=== PATIENT | male | born 1945 | race Hispanic/Latino ===

== ENCOUNTER 2019-03-16 06:30 | Emergency (ER) | payer MEDICARE ==
[2019-03-16 06:46] LABS: #Lymphocytes 0.6 thou/uL (1.20-3.40); #Monocytes 0.5 thou/uL (0.11-0.59); #Neutrophils 9.6 thou/uL (1.40-6.50); %Basophils 0.5 % (0.0-1.0); %Neutrophils 88.5 % (42.0-75.0); Mean Corpuscular HGB CONC 32.9 g/dL (32.0-36.0); Mean Corpuscular Hemoglobin 30.1 pg (27.0-31.0); Mean Corpuscular Volume 91.7 fL (78.0-98.0); Mean Platelet Volume 8.1 fL (7.4-10.4); Platelet Count 121 thou/uL (130-400); RBC Distribution Width 12.8 % (11.5-14.5); Red Blood Cell (RBC) Count 3.33 mill/uL (4.70-6.10); White Blood Cell (WBC) Count 10.8 thou/uL (4.8-10.8)
[2019-03-16 07:03] LABS: ALT (SGPT) 10 U/L (8-55); AST (SGOT) 15 U/L (5-34); Albumin 2.7 g/dL (3.4-4.8); Alkaline Phosphatase 65 U/L (40-110); Anion Gap 15 mmol/L (10-20); BUN (Urea Nitrogen) 73 mg/dL (8.4-25.7); Bilirubin, Total 0.5 mg/dL (0.2-1.2); Calc. Creatinine Clearance 0 mL/min (70-130); Calcium 7.6 mg/dL (7.8-10.44); Carbon Dioxide 23 mmol/L (23-31); Chloride 104 mmol/L (98-107); Estimated GFR-MDRD 26; Globulin 2.1 g/dL (2.4-3.5); Glucose 180 mg/dL (83-110); Potassium 4.5 mmol/L (3.5-5.1); Protein, Total 4.8 g/dL (5.8-8.1); Sodium 137 mmol/L (136-145)
[2019-03-16 07:16] LABS: INR-International Normal Ratio 1.3; PTT 34.8 SEC (22.9-36.1); Prothrombin Time 16.6 SEC (12.0-14.7)
[2019-03-16 07:21] LABS: CKMB 4.5 ng/mL (0-6.6)
--- NOTE | 2019-03-16 07:31 | CT ---
Exam: Head CT without contrast HISTORY: Altered mental status COMPARISON: none FINDINGS: Hemorrhage: No intraparenchymal hemorrhage or extra-axial hematoma. Brain parenchyma: Cortical bar-white matter differentiation is preserved. No mass effect or midline shift. Basilar cisterns are patent. Ventricular system: Ventricles and sulci are patent and symmetric. Calvarium: Intact. Sinuses and mastoid air cells: Adequate aeration. IMPRESSION: No acute intracranial process.
--- NOTE | 2019-03-16 07:38 | CT ---
INDICATION: Stroke COMPARISON: None TECHNIQUE: CT angiogram of the head and neck are performed in the axial plane. Three-dimensional refo rmatted images are submitted for interpretation. FINDINGS: CTA OF THE HEAD WITH AND WITHOUT CONTRAST: POSTCONTRAST CT OF BRAIN: Pathologic enhancement: No pathologic enhancement the brain. Postcontrast soft tissue neck CT: Sinuses: Mild mucosal thickening of the ethmoid air cells. Adequate mastoid air cell aeration.. Orbits: Bilateral ocular lenses are appropriately located. Both globes are intact. Retrobulbar fat is preserved. Symmetric attenuation the optic nerves and ocular rectus muscles. Bilateral ocular lens implants are appropriately located Salivary glands:Symmetric attenuation Thyroid gland: Unremarkable Lymph nodes: No evidence of lymphadenopathy by size criteria. Paraspinal muscles: Symmetric attenuation of the sternocleidomastoid muscles. Appropriate attenuation of the paraspinal muscles. Cervical spine:Vertebral body height is maintained. No fracture. No significant central canal stenosi s or significant neural foraminal narrowing. Limited evaluation by technique. Upper mediastinum and lung apices: Consolidation in the visualized lung apices. Endotracheal tube is noted. CTA OF THE NECK WITH CONTRAST: Aorta: Normal caliber visualized aortic arch. Right carotid artery: Appropriate enhancement and luminal diameter. No significant stenosis based upo n NASCET criteria Left carotid: Appropriate enhancement and luminal diameter. No significant stenosis based upon NASCET criteria Subclavian arteries:Symmetric enhancement and luminal diameter Vertebral arteries:Limited evaluation of the origin of both cervical vertebral arteries. Vertebral ar teries appear to be patent throughout their course in the neck. Dominant left vertebral artery CTA OF THE BRAIN: Intracranial internal carotid arteries:Appropriate enhancement and luminal diameter. Atherosclerosis of both cavernous segments Anterior circulation: Symmetric enhancement and luminal diameter the A1 and M1 segments. Proximal A2 segments and proximal MCA branches are unremarkable. Intracranial vertebral arteries: Appropriate enhancement and luminal diameter. Posterior circulation: Both vertebral arteries supply a normal caliber basilar artery. Bilateral P1 s egments have appropriate enhancement and luminal diameter. IMPRESSION: 1. No hemodynamically significant stenosis, occlusion or aneurysmal formation.
[2019-03-16 07:40] LABS: Base Excess-Venous -4.4 mmol/L (-2.0 to 3.0); Bicarbonate (HCO3v) 24.2 mmol/L (22.0-28.0); CO2 Tension (PvCO2) 61.6 mmHg (40.0-50.0); Calcium, Ionized 1.08 mmol/L (See Comments:); Chloride 101 mmol/L (98-107); Hemoglobin - Calc 10.7 g/dL (14.0-18.0); Potassium 4.5 mmol/L (3.5-5.1); Sodium 136 mmol/L (138-145); vO2 Saturation-calc 95.4 % (60.0-85.0)
--- NOTE | 2019-03-16 07:41 | CT ---
Exam: CT angiogram of the chest HISTORY: Altered mental status. COMPARISON: None TECHNIQUE: CT angiogram of the chest is performed in the axial plane. Three-dimensional reformatted i mages are submitted for interpretation FINDINGS: Mediastinum: No mass, lymphadenopathy or hematoma. HEART: Heart is enlarged. No significant pericardial fluid Aorta: Suboptimal evaluation due to poor timing of contrast bolus. No evidence of aneurysm. Upper solid abdominal viscera: Solid organs are grossly unremarkable. Trachea and central bronchi: Endotracheal tube is noted. Pleural spaces: No effusion Lung parenchyma: Consolidation involving the visualized left and right upper lobes as well as the sup erior segment of both lower lobes. Correlate for aspiration, pneumonia or atelectasis. 0.7 cm solid nodule in the superior segment of the right lower lobe is noted. Pneumothorax: None Osseous structures: No lytic or blastic lesions Pulmonary arteries:Inadequate evaluation due to poor timing of contrast bolus. No obvious central pul monary embolism. IMPRESSION: 1. Markedly limited evaluation pulmonary arterial system due to timing of contrast bolus. No obvious central pulmonary artery embolus appreciated. 2. Consolidation lung parenchyma as described above. Correlate for aspiration, pneumonia or atelectas is.
[2019-03-16] MEDS ORDERED: Sodium Chloride 0.9% 100 ML ONE (07:53)
[2019-03-16] MEDS ORDERED: Piperacillin/Tazobactam 4.5 GM VIAL ONE (07:53)
--- NOTE | 2019-03-16 17:06 | RAD ---
PORTABLE CHEST: 03/16/19 An AP portable film at 0717 is submitted. The patient has been intubated with the tip of the endotrac heal tube in adequate position. Some infiltrative changes are suggested in the left mid lung zone. Th e right lung is clear. The heart is mildly enlarged. Prominence of the mediastinal width is probably due to a combination of recumbent positioning, AP technique, and an incomplete degree of inspiration. IMPRESSION: 1. Patchy infiltrate in the left mid-lung. 2. Cardiomegaly. See CT angio of the chest report for description of pulmonary findings. POS: HOME
== END 2019-03-16 08:34 | disposition short-term general hospital (02) ==
LOC: BURERS 06:30
DX: R06.03 Acute respiratory distress (principal); G93.1 Anoxic brain damage, not elsewhere classified; E78.5 Hyperlipidemia, unspecified; I10 Essential (primary) hypertension; E78.00 Pure hypercholesterolemia, unspecified
CPT/HCPCS: 0042T; 36415; 51702; 70450; 70496; 71045; 71275; 80053; 82330; 82553; 82803; 83880; 84484; 85025; 85610; 85730; 87040; 93005; 94760; 96365; J2543; J3490

== ENCOUNTER 2020-03-08 00:41 | Emergency (ER) | payer MEDICARE ==
[2020-03-08 01:31] LABS: #Lymphocytes 1.5 thou/uL (1.20-3.40); #Monocytes 0.6 thou/uL (0.11-0.59); #Neutrophils 4.7 thou/uL (1.40-6.50); %Basophils 0.4 % (0.0-1.0); %Eosinophils 0.4 % (0.0-10.0); %Lymphocytes 21.5 % (21.0-51.0); %Monocytes 9.3 % (0.0-10.0); %Neutrophils 68.4 % (42.0-75.0); Hemoglobin 15.1 g/dL (14.0-18.0); Mean Corpuscular HGB CONC 32.6 g/dL (32.0-36.0); Mean Corpuscular Hemoglobin 28.4 pg (27.0-31.0); Mean Corpuscular Volume 87.1 fL (78.0-98.0); Mean Platelet Volume 8.7 fL (7.4-10.4); Platelet Count 147 thou/uL (130-400); RBC Distribution Width 13.8 % (11.5-14.5); White Blood Cell (WBC) Count 6.9 thou/uL (4.8-10.8)
[2020-03-08] MEDS ORDERED: Potassium Chloride 20 MEQ TAB ONE (01:47)
[2020-03-08] MEDS ORDERED: Ketorolac Tromethamine 30 MG/ML VIAL ONE (01:47)
[2020-03-08 01:52] LABS: ALT (SGPT) 16 U/L (8-55); AST (SGOT) 20 U/L (5-34); Albumin 3.8 g/dL (3.4-4.8); Alkaline Phosphatase 114 U/L (40-110); Anion Gap 14 mmol/L (10-20); BUN (Urea Nitrogen) 18 mg/dL (8.4-25.7); Bilirubin, Total 0.4 mg/dL (0.2-1.2); Calc. Creatinine Clearance 0 mL/min (70-130); Calcium 8.2 mg/dL (7.8-10.44); Carbon Dioxide 23 mmol/L (23-31); Chloride 104 mmol/L (98-107); Globulin 3.2 g/dL (2.4-3.5); Glucose 105 mg/dL (83-110); Sodium 138 mmol/L (136-145)
[2020-03-08 01:53] LABS: Potassium 2.8 mmol/L (3.5-5.1)
[2020-03-08 02:21] LABS: CKMB 5.4 ng/mL (0-6.6)
[2020-03-08 02:29] LABS: Base Excess-Venous 0.8 mmol/L (-2.0 to 3.0); Bicarbonate (HCO3v) 25.1 mmol/L (22.0-28.0); CO2 Tension (PvCO2) 38.3 mmHg (40.0-50.0); Calcium, Ionized 1.06 mmol/L (1.15-1.33); Chloride 102 mmol/L (98-107); Hemoglobin - Calc 14.4 g/dL (14.0-18.0); Potassium 2.7 mmol/L (3.5-5.1); Sodium 140 mmol/L (138-145); T. Carbon Dioxide 26.3 mmol/L (22.0-28.0); vO2 Saturation-calc 97.1 % (60.0-85.0)
[2020-03-08] MEDS ORDERED: Aspirin Chewable 81 MG TAB ONE (03:02)
[2020-03-08] MEDS ORDERED: Nitroglycerin 2% Ointment 1 INCH/1 GM Packet ONE (03:02)
--- NOTE | 2020-03-08 09:24 | RAD ---
PORTABLE CHEST: Date: 03/08/2020 An AP portable film at 0136 hours is compared with an 01/16/2020 study. Cardiomegaly is present, perhaps a little moreso than before. The upper lobe vessels seem marginally more prominent than they were previously, but I do not see definite pulmonary edema. No major lobar i nfiltrates or effusions are seen. I would question a streaky area or two in the right lung, but this is equivocal. I understand that the patient has tested positive recently for COVID. At this point, th e plain film findings cannot absolutely confirm the presence or absence of infiltrates. A CT perhaps could. IMPRESSION: 1. Mild cardiomegaly and question of minimal congestion of vessels. 2. Equivocal patchy area or two in the right lung, but not enough to confirm definite infiltrates. POS: HOME
== END 2020-03-08 03:25 | disposition short-term general hospital (02) ==
LOC: BURERS 00:41
DX: U07.1 COVID-19 (principal); R77.8 Other specified abnormalities of plasma proteins; I51.7 Cardiomegaly; M54.9 Dorsalgia, unspecified; E03.9 Hypothyroidism, unspecified; E78.5 Hyperlipidemia, unspecified; I10 Essential (primary) hypertension; Z79.899 Other long term (current) drug therapy
CPT/HCPCS: 71045; 80053; 82330; 82553; 82803; 83605; 83880; 84484; 85025; 93005; 94760; J1885